=== PATIENT | male | born 1990 | race Caucasian/White ===

== ENCOUNTER 2018-06-19 06:27 | Emergency (ER) | payer SELFPAY ==
[~2018-06-19] VITALS: Ht 180.3 cm; Wt 68.8 kg
[2018-06-19] MEDS ORDERED: MORPHINE SULFATE 4 MG/ML CPJ (NOT FOR IM USE) IV STA (08:01)
[2018-06-19] MEDS ORDERED: ONDANSETRON HCL 4MG/2ML VIAL IV STA (08:01)
[2018-06-19 08:54] LABS: BASOPHILS % 0.5 % (0.0-2.0); EOSINOPHILS % 0.6 % (0.0-5.0); HEMATOCRIT. 41.9 % (42.0-52.0); HEMOGLOBIN. 14.6 g/dL (14.0-18.0); LYMPHOCYTES % 13.6 % (20.0-50.0); MEAN CORPUSCULAR HEMOGLOBIN 30.2 pg (28.0-32.0); MEAN CORPUSCULAR VOLUME 86.8 fL (80.0-94.0); MEAN PLATELET VOLUME 8.5 fl (7.4-10.4); NEUTROPHILS % 77.3 % (40.0-76.0); PLATELET 141 x1000/uL (130-400); RED BLOOD CELL COUNT 4.83 mill/uL (4.7-6.1); RED CELL DISTRIBUTION WIDTH 13.8 % (11.6-14.6)
[2018-06-19 09:01] LABS: CHLORIDE 100 mEq/L (98-107)
[2018-06-19 12:08] LABS: CLARITY URINE CLOUDY (CLEAR); COLOR URINE YELLOW (YELLOW); KETONES URINE NEGATIVE (NEGATIVE); LEUKOCYTE ESTERASE URINE NEGATIVE (NEGATIVE); NITRITE URINE NEGATIVE (NEGATIVE); OCCULT BLOOD URINE NEGATIVE (NEGATIVE); PH URINE 7.5 (4.5-8.0); PROTEIN URINE TRACE (NEGATIVE); SPECIFIC GRAVITY URINE 1.023 (1.005-1.030)
[2018-06-19 12:51] VITALS: BP 101/62
== END 2018-06-19 13:15 | disposition home or self-care (01) ==
LOC: ER 06:27
DX: N20.0 Calculus of kidney (principal); N28.1 Cyst of kidney, acquired; J45.909 Unspecified asthma, uncomplicated; Z90.49 Acquired absence of other specified parts of digestive tract
CPT/HCPCS: 36415; 74176; 80053; 81003; 85025; 87086; 96374; 96375; 99285; J2270; J2405